=== PATIENT | female | born 1955 | race Caucasian/White ===

== ENCOUNTER → 2017-10-31 14:35 | Outpatient (CLI) | payer BC, SELFPAY ==
[2017-11-07 09:44] LABS: HPV Reflexed? NOT INDICATED
== END ==
PROVIDERS: Family Provider Family Medicine; PCP Family Medicine; Visit Provider Obstetrics & Gynecology
DX: Z12.4 Encounter for screening for malignant neoplasm of cervix (principal)
CPT/HCPCS: 88175; G0145

== ENCOUNTER → 2017-12-12 14:43 | Outpatient (CLI) | payer BC, SELFPAY ==
--- NOTE | 2017-12-12 15:04 | US_ITS ---
STUDY: RENAL ULTRASOUND - COMPLETE REASON FOR EXAM: Female, 62 years old. History of chronic cystitis. Incomplete emptying of the bladder. TECHNIQUE: Ultrasound evaluation of the kidneys was performed with real-time and static edwards-scale imaging. COMPARISON: None. FINDINGS: RIGHT KIDNEY: Normal location of the right kidney, which is normal in size. The right kidney measures 12.6 cm x 5.3 cm x 5.4 cm. There is a normal cortex of the right kidney. The renal cortex measures 1.4 cm. There is a 1.4 cm x 1.3 cm x 1.4 cm cyst. There are no right renal calculi. There is no right hydronephrosis. DISTAL RIGHT URETER: There is non-visualization of the distal right ureter. There is no demonstrated right ureterovesical junction calculus. There is no demonstrated right ureteral jet. LEFT KIDNEY: Normal location of the left kidney, which is normal in size. The left kidney measures 11.1 cm x 5.1 cm x 5.3 cm. There is a normal cortex of the left kidney. The renal cortex measures 1.8 cm. There is no left renal mass or cyst. There are no left renal calculi. There is no left hydronephrosis. DISTAL LEFT URETER: There is non-visualization of the distal left ureter. There is no demonstrated left ureterovesical junction calculus. There is no demonstrated left ureteral jet. I.V.C.: The IVC is patent. BLADDER: The distended urinary bladder has a volume of 444 ml. The empty urinary bladder has a volume of 84 ml. There is a normal wall thickness of the distended urinary bladder. There is no demonstrated mass within the urinary bladder. There are no demonstrated bladder calculi. US/Kidney and Bladder IMPRESSION: Small right renal cyst. Electronically Signed: Braden Marrero MD at 15:11 EDT Tel [phone], Service support ,
== END ==
PROVIDERS: Family Provider Family Medicine; PCP Family Medicine; Visit Provider Nurse Practitioner Adult Health
DX: N30.20 Other chronic cystitis without hematuria (principal)
CPT/HCPCS: 76770

== ENCOUNTER → 2018-09-17 10:09 | Outpatient (CLI) | payer BC, SELFPAY ==
--- NOTE | 2018-09-17 10:12 | BI_ITS ---
MAMMOGRAPHY - BILATERAL SCREENING REASON FOR EXAM: Female, 63 years old. Routine annual screening examination. PERTINENT HISTORY: Non-contributory. Chronic bilateral nipple inversion. TECHNIQUE: Digital bilateral breast bello (3D mammographic acquisition) in the CC and MLO projections. 2-D mediolateral oblique (MLO) and craniocaudad (CC) views of both breasts were obtained. CAD: Full Field Digital Mammography with Computer Added Detection was performed. COMPARISON: Comparison is made with prior study dated July 04, 2017 and June 28, 2016. FINDINGS: Breast Composition: There are scattered areas of fibroglandular density. There are no dominant masses or suspicious calcifications. Stable small bilateral axillary lymph nodes. No other significant abnormalities are identified. There has been no significant change since the prior study. BI/SCREENING MAMM (CAD), BILAT IMPRESSION: Stable bilateral screening mammogram. Yearly follow-up mammogram recommended. (A) ASSESSMENT CATEGORY: BIRADS Category 2: Benign. A letter regarding these results will be sent to the patient by the facility within 30 days. Approximately 10% of breast cancers are not detected by mammography. A normal mammogram should not delay biopsy of a clinically suspicious abnormality. [id number] Electronically Signed: Braden Marrero MD at 13:03 EST Tel [phone], Service support ,
== END ==
PROVIDERS: Family Provider Family Medicine; PCP Family Medicine; Visit Provider Obstetrics & Gynecology
DX: Z12.31 Encounter for screening mammogram for malignant neoplasm of breast (principal)
CPT/HCPCS: 77063; 77067

== ENCOUNTER → 2019-01-22 11:30 | Outpatient (CLI) | payer BC, SELFPAY ==
[2019-01-28 12:22] LABS: HPV Reflexed? NOT INDICATED
== END ==
PROVIDERS: Family Provider Family Medicine; PCP Family Medicine; Referring Provider Obstetrics & Gynecology; Visit Provider Obstetrics & Gynecology
DX: Z12.4 Encounter for screening for malignant neoplasm of cervix (principal)
CPT/HCPCS: 88175; G0145

== ENCOUNTER → 2020-01-26 10:57 | Outpatient (CLI) | payer MEDICARE, BC, SELFPAY ==
--- NOTE | 2020-01-26 10:59 | BI_ITS ---
MAMMOGRAPHY - BILATERAL SCREENING REASON FOR EXAM: Female, 64 years old. Routine annual screening examination. PERTINENT HISTORY: Non-contributory. History of chronic bilateral nipple inversion. TECHNIQUE: Digital bilateral breast miryam (3D mammographic acquisition) in the CC and MLO projections. 2-D mediolateral oblique (MLO) and craniocaudad (CC) views of both breasts were obtained. CAD: Full Field Digital Mammography with Computer Added Detection was performed. COMPARISON: Comparison is made with prior examination dated March 17, 2019 and July 04, 2017. FINDINGS: Breast Composition: There are scattered areas of fibroglandular density. There are no dominant masses or suspicious calcifications. Stable small benign appearing bilateral axillary lymph nodes. No other significant abnormalities are identified. There has been no significant change since the prior study. BI/SCREEN MAMM (CAD) W/MIRYAM BILAT IMPRESSION: Stable bilateral screening mammogram. Yearly follow-up mammogram recommended. (A) ASSESSMENT CATEGORY: BIRADS Category 2: Benign. A letter regarding these results will be sent to the patient by the facility within 30 days. Approximately 10% of breast cancers are not detected by mammography. A normal mammogram should not delay biopsy of a clinically suspicious abnormality. [id number] Electronically Signed: Braden Marrero, at 9:09 EDT , Service support ,
== END ==
PROVIDERS: PCP Family Medicine; Referring Provider Obstetrics & Gynecology; Visit Provider Obstetrics & Gynecology
DX: Z12.31 Encounter for screening mammogram for malignant neoplasm of breast (principal)
CPT/HCPCS: 77063; 77067

== ENCOUNTER → 2020-06-06 15:16 | Outpatient (CLI) | payer MEDICARE, BC, SELFPAY | PROVIDERS: PCP Family Medicine; Referring Provider Nurse Practitioner Adult Health; Visit Provider Nurse Practitioner Adult Health | DX: N30.20 Other chronic cystitis without hematuria (principal) | CPT/HCPCS: 87086 ==

== ENCOUNTER 2020-10-13 11:30 | Outpatient (RCR) | payer MEDICARE, BC, SELFPAY ==
--- NOTE | 2020-07-08 08:32 | HP.OTEVAL_ITS ---
Patient's Visit Information BETSY CASTANO is a 65 year old F, referred to Occupational Therapy by Dr. Hussain Mcneil MD, with a diagnosis of right laceration of finger tendon. Date of Evaluation: 07/04/20 Occupational Therapist: Caro Lynch, OTR/Karlee, CHT - Subjective This 65 year old female was seen for OT eval with dx of right hand. pt states she 2019 suffered a laceration. Pt states she went to ER but could not bend the tip of her finger- pts states she went to her family and pt was refered to [facility]. and the refered pt to [facility]. pt has delay sx repair of flexor tendon on . Dr. tracy . pt is right handed. - Pain right hand 2 Pain Intensity Range: 3, 4 - ROM MP: right IF 0/40 PIP: right IF -5/35 DIP: right IF 0/10 ROM Comments: pt demo with newly healing incision. pt reluctant to move IF- all other digits moving well - Strength Strength Comments: will test at later date - Sensation Sensation Comments: denies at this time - Quick DASH-Disab of Arm,Shoulder& Hand Quick DASH Score: 59.0900 - Goals Goal:100% adherence to protocol: Yes Comment: Dr. Mcneil flexor tendon zone 1-3 Goal:Daily scar massage when approriate: Yes Goal:ROM equal to unaffected hand: Yes Goal:Clinical Geneticist/Pinch strength at least 75% of unaffected hand: Yes Goal:No pain with affected hand use: Yes Goal:PIP Circumferences equal to unaffected hand: Yes Goal:Full use of affected hand in daily activities including: Yes Goal:Decrease scar hypersensitivity: Yes - Rehabilitation General Assessment: this pt arrives s/p 3 days from flexor tendon repair. pt demo with new healing zone one flexor tendon laceration with repair and in need of custom othosis to allow for protection and support while tendon is healing. Today therapist was able to deon. custom orthosis. Therapist ed. pt on Dr. Mcneil flexor tendons zone 1-3 protocol. pt demo understanding- During dressing change pt did get ligh headed- therapist did have pt lay down on mat table and deon. orthosis with pt in this position- pt recoverd and felt it was more due to pain medication- therapist will progress pt with protocol as she tolerates. Rehabilitation Potential: Good - Anticipated Interventions A/AAROM/PROM, Edema Control, Scar Care, Triggerpoint Release, Wound Care, Modalities, Orthoses, Joint Protection/Energy Conservation, Ergonomic Education, Fine Motor Coord/Jaiosn - Visit Plan Frequency: 1-2x /Week Duration: 6 Weeks General Plan: 4-5 dyas post-surgery- Deon. dorsal blocking orthosis apply light dressing to involved digitis. wrist 0* , MP's 45* flexion, IPs at 0* (do not force DIP extension due to possible tendon repair). Initiate full PROM for flexion in orthosis of digits a isolated passive DIP flexion, isolater passive PIP flexion, Isolated passive MP flexion and composite passive flexion perform 6x a day. Initiate short arch AROM flexion of digits within orthosis (MP 45*, PIP 45*, DIP 45*) have patient place uninvolved hand (fingers small,ring,long,index) perpendicular to involved hand at the distal palmar crease index up, small finger at DPC to act as bloc, have pt actively flex the involved hand to the index,thaen straighten to the orthosis perform 10 repetitions 6x a day. Instruct pt to remove orthosis allow pt to actively extend fingers as able to comfort with the wrist in neutral. perform 10 repetitions 6x a day, DO NOT ALLOW WRIST EXTENSION. ed- pt on rancho reduction lacy. Flexor tendon precautions. orthosis is worn multiple resaw operator except controlled exercises. maintaining ROM of the non-involved elbow/shoulder. How to perform self-care activities one handed wihle protection tendon repair. 2nd post op visit- cont the above exercises-. initiate protected synergistic wrist motion SWM (Tenodesis)- active wrist flexion with fingers relaxed, active wrist extension to only 20* extension, with fingers blocked from going into extension (protected flexion) DO NOT ALLOW ACTIVE WRIST AND FINGER EXTENSION. DO NOT ALLOW PROM WRIST. perform in clinic only 10 reps. 3rd post op. cont all above ex. see protocol if extensor lag develops. 2 weeks post-op. cont PROM for flexion. cont protected passive IP extension. cont isolated FDS glide in orthosis. continue protected SWM in clinic only. increase short arc active motion in orthosis (no thre fingers and have pt flex to indes and extend to the orthosis- perform 10 reps 6x a day. cont. to have pt remove orthosis allow pt to actively extend fingers as able to comfort with the wrist in Neutral (*do not allow wrist ext*). cont edmea mtg. cont ROM of elbow shoulder. cont orthosis full-time. 3rd week post op. cont PROM. cont protected passive IP ext. cont isolated FDS glide in orthosis. cont protected SWM. INcrease Short arc active motion in orhtosis two fingers. cont out of orthosis and extend fingers as able to comfort with wrist in neutral. 4th week post-op. cont PROM. cont protected passive IP ext. cont isolated FDS glide in orthosis. cont protected SWM. INcrease Short arc active motion in orhtosis 1 fingers. cont out of orthosis and extend fingers as able to comfort with wrist in neutral. see protocol on file for more details on protocol. TEXT: Thank you for the opportunity to evaluate your patient. For Medicare and Medicare HMO plans, please review the plan of care and approve it. It will need to be FAXED BACK to us at [phone] for Medicare purposes. Please let me know if there are questions or concerns regarding this plan of care. Physician Signature: Date:
--- NOTE | 2020-08-01 13:02 | OTREVAL_ITS ---
Dr. Hussain Mcneil MD, It has been my pleasure to treat BETSY CASTANO over the last 9 visits for right laceration of finger tendon. Please see the progress note below for an update on the occupational therapy plan of care! Subjective: pt arrives 4 weeks and 3 days s/p from FDP repair-. pt struggling with edema- reports she is keeping hand elevated and performing ex as instructed 6x a day. scar mtg and using elastomer at night- pt feels scar is not as thick when she takes the elastomer off-. pt feels she has noticed better motion of the tip of her finger from privous visit. But not the way it was a week ago- Objective/Function: right proximal phal- 7. proximal phal 6.2. right distal 5.9. left distal 4.9. right IF DIP 0/10. right IF PIP -5/80. right IF MCP 0/80. following US and exercises pt demo a increase in DIP flex to 15* - therapist continues to ed. pt on making sure she is straightening her finger al the way as to not get extensor lag or contracture from scar tissue pt demo understanding- therapist continues to advise pt use contrast bath- and elevation to decrease swelling- ( pt was using co-band and k-tape but therapist quesiton if pt was able to get appropriate graded pressure-. therapist ed,pt to cont to work scar tissue as she can tolerate do decrease scar adhesions. pt agree and de mo understanding. pt using elastomer at night and therapist advised throughout the day if she was in her orthosis- advised pt it was better to move figer than stay in orthosis with elastomer on. pt demo understanding. Plan Frequency: 1-2x /Week Duration: 6 Weeks Plan: therapy will cont with US. and protocol exercises unless otherwise specified by . pt will see Saturday Goals - Goals Patient Goals: Regain Mobility, Regain Strength, Use Hand/Wrist/Arm Normally Again Goal:100% adherence to protocol: Yes Goal:Daily scar massage when approriate: Yes Goal:ROM equal to unaffected hand: Yes Goal:Business Systems Technician/Pinch strength at least 75% of unaffected hand: Yes Goal:No pain with affected hand use: Yes Goal:PIP Circumferences equal to unaffected hand: Yes Goal:Full use of affected hand in daily activities including: Yes Goal:Decrease scar hypersensitivity: Yes Anticipated Interventions Anticipated Interventions: A/AAROM/PROM, Edema Control, Scar Care, Triggerpoint Release, Wound Care, Modalities, Orthoses, Joint Protection/Energy Conservation, Ergonomic Education, Fine Motor Coord/Jaison Please do not hesitate to contact me at [phone] by phone or if you have questions or concerns regarding this new plan of care! Sincerely, Caro Lynch, OTR/L, CHT
--- NOTE | 2020-09-12 16:59 | OTREVAL_ITS ---
Dr. Hussain Mcneil MD, It has been my pleasure to treat BETSY CASTANO over the last 20 visits for right laceration of finger tendon. Please see the progress note below for an update on the occupational therapy plan of care! Subjective: pt arrives to session 11 weeks s/p with limited DIP flex for functional ADLs as opening bottles or grooming tasks. pt has concerns as the tip of her IF is not moving ind. at this time. Objective/Function: pt has returned to using her right hand with ADLs and IADLs -. pt demo with limited actvie DIP flex at arrival to tx. session. pt demo active flex with blocking only at this time with 25* flex. pt demo with scar tissue limiting FDP motion therapy is using resisitve ROM , US, blocking orthosis and t-putty. pt is performing scar massage 6 x a day pt continues to struggle with active ROM - therapist ed. pt that scar tissue can limit tendon gliding. therapist ed. pt to cont with scar manuipulation and use of blocking to increase FDP motion. Plan Plan: pt to return to for apt. will work with what dr. green'd for cont. of tx or HEP and monitor pts progress. Goals - Goals Patient Goals: Regain Mobility, Regain Strength, Use Hand/Wrist/Arm Normally Again Goal:100% adherence to protocol: Yes Goal:Daily scar massage when approriate: Yes Goal:ROM equal to unaffected hand: Yes Goal:Patient Advocate/Pinch strength at least 75% of unaffected hand: Yes Goal:No pain with affected hand use: Yes Goal:PIP Circumferences equal to unaffected hand: Yes Goal:Full use of affected hand in daily activities including: Yes Goal:Decrease scar hypersensitivity: Yes Anticipated Interventions Anticipated Interventions: A/AAROM/PROM, Edema Control, Scar Care, Triggerpoint Release, Wound Care, Modalities, Orthoses, Joint Protection/Energy Conservation, Ergonomic Education, Fine Motor Coord/Jaison Please do not hesitate to contact me at [phone] by phone or if you have questions or concerns regarding this new plan of care! Sincerely, Caro Lynch, OTR/L, CHT
--- NOTE | 2020-10-13 12:02 | OTREVAL_ITS ---
Dr. Hussain Mcneil MD, It has been my pleasure to treat BETSY CASTANO over the last 27 visits for right laceration of finger tendon. Please see the progress note below for an update on the occupational therapy plan of care! Subjective: pt is arrives [address] graves. pt reports no change since prior to her DR. graves- pt states she knows dr wanted her to cont. with therapy for 6-8 weeks but I haven't noticed a change still cant bend the tip of my finger. pt is performing her HEP. Objective/Function: Right diesel maintenance electrician strength 30# left 65#. right lateral pinch 12# left 12#. right tripod pinch 4# left 8#. right tip pinch 2# left 10#. right IF PIP 0/100*. right IF DID +5/10*. pt is working with metal scar tool and hand helper-has blocking orthosis for HEP and use of t-putty med. resistance -. despite pts and therapist efforts pt has not gaind ROM- Plan Frequency: 1-2x /Week Duration: 6 Weeks Plan: Pt to return to for further assessment. Goals - Goals Patient Goals: Regain Mobility, Regain Strength, Use Hand/Wrist/Arm Normally Again Goal:100% adherence to protocol: Yes Goal:Daily scar massage when approriate: Yes Goal:ROM equal to unaffected hand: Yes Goal:Event Sales Manager/Pinch strength at least 75% of unaffected hand: Yes Goal:No pain with affected hand use: Yes Goal:PIP Circumferences equal to unaffected hand: Yes Goal:Full use of affected hand in daily activities including: Yes Goal:Decrease scar hypersensitivity: Yes Anticipated Interventions Anticipated Interventions: A/AAROM/PROM, Edema Control, Scar Care, Triggerpoint Release, Wound Care, Modalities, Orthoses, Joint Protection/Energy Conservation, Ergonomic Education, Fine Motor Coord/Jaison Please do not hesitate to contact me at [phone] by phone or if you have questions or concerns regarding this new plan of care! Sincerely, Caro Lynch, OTR/L, CHT
--- NOTE | 2020-12-19 10:23 | HP.OTDCSUM ---
It has been my pleasure to treat BETSY CASTANO under orders from Dr. Hussain Mcneil MD, for the diagnosis of right laceration of finger tendon for a total of 27 visit(s). Please see the following information for a summary of their discharge status. % Improvement: 50 Objective/Function: Right environmental engineer scientist strength 30# left 65#. right lateral pinch 12# left 12#. right tripod pinch 4# left 8#. right tip pinch 2# left 10#. right IF PIP 0/100*. right IF DID +5/10*. pt is working with metal scar tool and hand helper-has blocking orthosis for HEP and use of t-putty med. resistance -. despite pts and therapist efforts pt has not gaind ROM- Patient Goals: Regain Mobility, Regain Strength, Use Hand/Wrist/Arm Normally Again Goal:100% adherence to protocol: Yes Goal:Daily scar massage when approriate: Yes Goal:ROM equal to unaffected hand: Yes Goal:Practicing Urologist/Pinch strength at least 75% of unaffected hand: Yes Goal:No pain with affected hand use: Yes Goal:PIP Circumferences equal to unaffected hand: Yes Goal:Full use of affected hand in daily activities including: Yes Goal:Decrease scar hypersensitivity: Yes Plan: Pt to return to for further assessment. If there are questions or concerns regarding this patient's occupational therapy, please fell free to call me at [phone]. Thank you for the referral of this patient. Sincerely, Caro Lynch, OTR/L, CHT
== END 2020-10-13 19:00 | disposition home or self-care (01) ==
LOC: OT 11:30
PROVIDERS: PCP Family Medicine; Referring Provider Orthopaedic Surgery Hand Surgery; Visit Provider Orthopaedic Surgery Hand Surgery
DX: S61.219D Laceration without foreign body of unspecified finger without damage to nail, subsequent encounter (principal)
CPT/HCPCS: 97035; 97110; 97140; 97166; 97530; 97760

== ENCOUNTER → 2021-01-27 09:53 | Outpatient (CLI) | payer MEDICARE, BC, SELFPAY ==
--- NOTE | 2021-01-27 09:56 | BI_ITS ---
MAMMOGRAPHY - BILATERAL SCREENING 3-D TOMOSYNTHESIS REASON FOR EXAM: Female, 65 years old. Routine screening PERTINENT HISTORY: No significant family history. TECHNIQUE: 2-D mammograms and 3-D Tomosynthesis of the breast (s) were performed. CAD was performed. COMPARISON: 01/26/2020 FINDINGS: The breast composition is composed of scattered fibroglandular density. Scattered benign calcifications are seen. No dense spiculated masses or suspicious microcalcifications are identified. No architectural distortion is identified. There is no skin thickening or retraction. There has been no significant change since the prior study. BI/SCRN MAMM (CAD)W/MIRYAM BILAT IMPRESSION: No mammographic signs of malignancy. Routine yearly mammograms recommended. ASSESSMENT CATEGORY: BIRADS Category 1: Negative. A letter regarding these results will be sent to the patient by the facility within 30 days. FOLLOW UP RECOMMENDATION: Yearly follow up mammogram recommended. (A) Approximately 10% of breast cancers are not detected by mammography. A normal mammogram should not delay biopsy of a clinically suspicious abnormality. Electronically Signed: Richi James MD at 10:48 EDT , Service support ,
== END ==
PROVIDERS: PCP Family Medicine; Referring Provider Obstetrics & Gynecology; Visit Provider Obstetrics & Gynecology
DX: Z12.31 Encounter for screening mammogram for malignant neoplasm of breast (principal)
CPT/HCPCS: 77063; 77067

== ENCOUNTER 2021-09-28 08:32 | Outpatient (CLI) | payer MEDICARE, BC, SELFPAY ==
--- NOTE | 2021-09-28 08:40 | EKG12_ITS ---
Test Reason : PRE OP Blood Pressure : / mmHG Vent. Rate : 066 BPM Atrial Rate : 066 BPM P-R Int : 156 ms QRS Dur : 080 ms QT Int : 382 ms P-R-T Axes : 012 052 054 degrees QTc Int : 400 ms Normal sinus rhythm Normal ECG Confirmed by ROBIN FISH, MAYRA ([id number]), scientific editor MEL SHARMA ([id number]) on 09/29/2021 9:09:54 AM Referred By: Basil Mccrary Confirmed By:MAYRA KELLY MD
[2021-09-28 09:15] LABS: Hematocrit 41.4 % (37-47); Hemoglobin 13.4 g/dL (12.0-15.0); Mean Corp Hgb Conc 32.4 g/dL (32-36); Mean Corpuscular Hgb 31.7 pg (27.0-32.0); Mean Corpuscular Volume 97.9 fL (81-99); Mean Platelet Vol. 10.1 fl (6.2-12.0); Platelet Count 232 K/mm3 (150-450); RBC Distribution Width SD 46.5 fl (35.1-43.9); Red Blood Count 4.23 M/mm3 (4.2-5.4); White Blood Count 7.3 K/mm3 (4.4-11.0)
[2021-09-28 09:44] LABS: Anion Gap 2 (5-15); BUN 14 mg/dL (7-18); BUN/Creat Ratio 15.3 RATIO (10-20); Calcium,Total 9.3 mg/dL (8.5-10.1); Chloride 104 mmol/L (98-107); Creatinine, Serum 0.92 mg/dL (0.55-1.02); EST Glomerular Filtration Rate 65 mL/min (>60); Est Glom Filt Rate - Afr Amer 78 mL/min (>60); Glucose 90 mg/dL (74-106); Sodium Level 137 mmol/L (136-145)
== END 2021-09-28 23:59 | disposition short-term general hospital (02) ==
LOC: PSN 08:35
PROVIDERS: PCP Family Medicine; Referring Provider Physician Assistant; Visit Provider Physician Assistant
DX: Z01.818 Encounter for other preprocedural examination (principal); Z01.810 Encounter for preprocedural cardiovascular examination
CPT/HCPCS: 36415; 80048; 85027; 93005

== ENCOUNTER → 2022-03-08 | Outpatient (CLI) | payer MEDICARE, BC, SELFPAY ==
--- NOTE | 2022-03-08 08:42 | BI_ITS ---
MAMMOGRAPHY - BILATERAL SCREENING REASON FOR EXAM: Female, 66 years old. Routine annual screening examination. PERTINENT HISTORY: Non-contributory. TECHNIQUE: Digital bilateral breast miryam (3D mammographic acquisition) in the CC and MLO projections. 2-D mediolateral oblique (MLO) and craniocaudad (CC) views of both breasts were obtained. CAD: Full Field Digital Mammography with Computer Added Detection was performed. COMPARISON: Comparison is made with prior study of 01/27/2021 and 01/26/2020. FINDINGS: Breast Composition: There are scattered areas of fibroglandular density. There are no dominant masses or suspicious calcifications. Stable small benign-appearing bilateral axillary lymph nodes. No other significant abnormalities are identified. There has been no significant change since the prior study. BI/SCRN MAMM (CAD)W/MIRYAM BILAT IMPRESSION: Stable bilateral screening mammogram. Yearly follow-up mammogram recommended. (A) ASSESSMENT CATEGORY: BIRADS Category 2: Benign. A letter regarding these results will be sent to the patient by the facility within 30 days. Approximately 10% of breast cancers are not detected by mammography. A normal mammogram should not delay biopsy of a clinically suspicious abnormality. [id number] Electronically Signed: Braden Marrero MD at 9:53 EDT ,
== END | disposition home or self-care (01) ==
LOC: OPBI 08:41
PROVIDERS: PCP Family Medicine; Visit Provider Obstetrics & Gynecology
DX: Z12.31 Encounter for screening mammogram for malignant neoplasm of breast (principal)
CPT/HCPCS: 77063; 77067

== ENCOUNTER → 2022-09-13 | Outpatient (CLI) | payer MEDICARE, BC, SELFPAY | END | disposition home or self-care (01) | LOC: LABSPEC 16:47 | PROVIDERS: PCP Family Medicine; Visit Provider Urology | DX: R35.0 Frequency of micturition (principal) | CPT/HCPCS: 87086 ==

== ENCOUNTER 2022-12-03 10:59 | Emergency (ER) | payer MEDICARE, BC, SELFPAY ==
[2022-12-03 10:59] VITALS: BP 99/75; PULSE 90; RESP 14; TEMP 36.2; O2SAT 99; BMI 27.4
--- NOTE | 2022-12-03 12:27 | EDS_ITS ---
HPI History of Present Illness Chief Complaint: General Illness Informant: patient Onset/Context/Timing Onset: Weeks (1 week) Context: Gradual Onset Narrative Narrative: Patient presents with 1 week history of cough and congestion. She has a slight sore throat. No measured fever. No vomiting or diarrhea. [facility] Medical History High cholesterol Home Medications aspirin 81 mg tablet,delayed release (Adult Low Dose Aspirin) 81 mg PO DAILY 02/10/16 [History Last Taken Unknown] cholecalciferol (vitamin D3) 25 mcg (1,000 unit) tablet (Vitamin D3) 1,000 unit PO DAILY 02/10/16 [History Last Taken Unknown] docusate sodium 50 mg capsule (Stool Softener) 50 mg PO DAILY 02/10/16 [History Last Taken Unknown] simvastatin 40 mg tablet 40 mg PO QHS 02/10/16 [History Last Taken Unknown] solifenacin 10 mg tablet (Vesicare) 10 mg PO DAILY 02/10/16 [History Last Taken Unknown] tacrolimus 0.03 % topical ointment (Protopic) 0 g topical DAILY PRN PRN skin irritation 02/10/16 [History Last Taken Unknown] ciprofloxacin HCl 500 mg tablet 500 mg PO BID ##10 02/17/16 [Rx Last Taken Unknown] hydrocodone 5 mg-acetaminophen 300 mg tablet (Vicodin) 1 tab PO Q6H PRN PRN Pain #14 tabs 02/17/16 [Rx Last Taken Unknown] benzonatate 100 mg capsule 100 mg PO Q6H PRN cough #20 caps 12/03/22 [Rx Last Taken Unknown] Allergy/AdvReac Type Severity Reaction Status Date / Time dexamethasone [From TobraDex] Allergy Hives Verified 12/03/22 11:01 tobramycin [From TobraDex] Allergy Hives Verified 12/03/22 11:01 Sulfa (Sulfonamide AdvReac sweats and Verified 02/10/16 08:20 Antibiotics) felt like had the flu Social History Smoking Status: Never smoker ROS ROS ED Constitutional Constitutional ED: Denies chills or fever(s) Eyes Eyes: Denies change in vision or discharge from eye(s) ENT ENT ED: Reports sore throat; Denies discharge from eye(s) or rhinorrhea Cardiovascular Cardiovascular: Denies chest pain or palpitations Respiratory/Chest Respiratory/Chest: Reports cough; Denies dyspnea Gastrointestinal Gastrointestinal: Denies abdominal pain, diarrhea, nausea or vomiting Genitourinary Genitourinary ED: Denies difficulty urinating or dysuria Musculoskeletal Musculoskeletal: Reports myalgias; Denies back pain or extremity pain Integumentary Denies Abrasions or rash Neurologic Neurologic: Reports headache(s) and weakness Psychiatric Psychiatric: Denies anxiety or depression Allergic/Immunologic Allergic/Immunologic ED: Denies lip swelling or urticaria EXAM Physical Exam Const Vital Signs: 12/03/22 10:59 12/03/22 12:55 Temperature 97.2 F L Temperature Source Temporal Pulse Rate 90 Respiratory Rate 14 Respiratory Effort Normal Non-Labored Respiratory Depth Normal Respiratory Pattern Normal Blood Pressure 99/75 Blood Pressure Mean 83 Pulse Ox 99 Oxygen Delivery Method Room Air Positive well nourished and well developed General Appearance ED: well developed HEENT Reports normocephalic and head/scalp atraumatic Eyes PERRL and EOMs intact bilaterally Neck supple Chest Wall inspection of chest normal and palpation of chest normal Resp normal respiratory effort and clear to auscultation bilaterally Cardio regular rate and regular rhythm GI normal to inspection, nondistended, normoactive bowel sounds Palpation: soft Extremity normal to inspection Neuro oriented x3 and no sensory deficits noted Sensorium / Orientation: alert Motor Exam: strength 5/5 throughout Psych mental status grossly normal Skin no rashes or lesions noted MDM MDM MDM Narrative Medical decision making narrative: Patient given IV fluids and 15 mg of Toradol. Labwork obtained to evaluate for leukocytosis, anemia, and electrolyte derangement. Chest x-ray obtained to evaluate for acute lung pathology, cardiac size, or mediastinal abnormality. Viral respiratory panel sent. Lab Data Attestation: I reviewed the patient's lab results. Labs: Laboratory Results - last 24 hr 12/03/22 12/03/22 12:45 12:45 WBC 6.7 RBC 4.16 L Hgb 13.3 Hct 40.8 MCV 98.1 MCH 32.0 MCHC 32.6 RDW Std Deviation 44.8 H RDW Coeff of Quyen 12.3 Plt Count 203 MPV 10.1 Immature Gran % (Auto) 0.300 Neut % (Auto) 68.3 Lymph % (Auto) 19.6 [place] % (Auto) 8.7 Eos % (Auto) 2.7 Baso % (Auto) 0.4 Absolute Neuts (auto) 4.6 Absolute Lymphs (auto) 1.31 Nucleated RBC % 0 Sodium 137 Potassium 3.7 Chloride 105 Carbon Dioxide 30.0 Anion Gap 2 L BUN 17 Creatinine 0.91 Estim Creat Clear Calc 51.09 Est GFR (MDRD) Af Amer 79 Est GFR (MDRD) Non-Af 65 BUN/Creatinine Ratio 18.7 Glucose 91 Calcium 9.3 Radiography Chest X-Ray - ED: 2 View, Read by ED Physician, Normal, Heart, Lungs and Mediastinum Diagnostic Testing: Clinical Impression(s) from Imaging Studies Chest X-Ray 12/03/22 12:53 IMPRESSION: Mild degree of increased markings at the left lung base suggestive of atelectasis. Electronically Signed: Braden Marrero MD at 13:03 EDT , Treatment and Re-Evaluation :: 2 view chest x-ray per my interpretation reveals no evidence of infiltrate. Radiology interpretation is reviewed and agrees. CBC and chemistry studies are unremarkable. Viral panel is pending at this time. If this is positive for an ything she will be called with an update. I advised her that I believe her illness is all viral in nature and simply needs supportive care. I will write her for Jessi Alejandre. Discharge Plan Triage Chief Complaint: General Illness ED Provider: Katelyn Dailey Dx/Rx/DC Orders Clinical Impression: Viral syndrome Instructions: ED Viral Syndrome (Adult) Prescriptions: New benzonatate 100 mg capsule 100 mg PO Q6H PRN (Reason: cough) Qty: 20 0RF No Action docusate sodium [Stool Softener] 50 MG capsule 50 mg PO DAILY simvastatin 40 MG tablet 40 mg PO QHS solifenacin [Vesicare] 10 MG tablet 10 mg PO DAILY cholecalciferol (vitamin D3) [Vitamin D3] 1,000 UNIT tablet 1,000 unit PO DAILY aspirin [Adult Low Dose Aspirin] 81 MG tablet,delayed release (DR/EC) 81 mg PO DAILY tacrolimus [Protopic] 30 GM ointment 0 g topical DAILY PRN PRN (Reason: skin irritation) ciprofloxacin HCl 500 MG tablet 500 mg PO BID Qty: 10 0RF hydrocodone-acetaminophen [Vicodin] 1 EACH tablet 1 tab PO Q6H PRN PRN (Reason: Pain) Qty: 14 0RF Rx Instructions: Primary Care Provider: Demetrius Escoto Referrals: Demetrius Escoto MD [Primary Care Provider] - 1 Week Disposition Disposition: Home, Self Care
[2022-12-03] MEDS: 0.9% Normal Saline 1,000 ML 1000 ML IV (12:47)
[2022-12-03] MEDS: Ketorolac 15 MG/ML Vial IV (12:47)
[2022-12-03 12:51] LABS: Absolute Lymphocyte Count 1.31 X10^3/uL (0.83-4.51); Absolute Neutrophil Count 4.6 X10^3/uL (2.0-7.7); Basophil# 0.03 X10^3/uL; Basophil% 0.4 % (0-1); Eosinophil# 0.18 X10^3/uL; Eosinophils% 2.7 % (0-5); Hematocrit 40.8 % (37-47); Hemoglobin 13.3 g/dL (12.0-15.0); Lymphocyte # 1.31 X10^3/ul (0.83-4.51); Lymphocyte % 19.6 % (19-41); Mean Corp Hgb Conc 32.6 g/dL (32-36); Mean Corpuscular Volume 98.1 fL (81-99); Mean Platelet Vol. 10.1 fl (6.2-12.0); Monocyte# 0.58 X10^3/uL; Monocyte% 8.7 % (0-10); NRBC Flagged by Analyzer 0 % (0-5); Neutrophil # 4.57 X10^3/uL (2.7-7.7); Neutrophil % 68.3 % (47-70); Platelet Count 203 K/mm3 (150-450); RBC Distribution Width CV 12.3 % (11.6-14.6); RBC Distribution Width SD 44.8 fl (35.1-43.9); Red Blood Count 4.16 M/mm3 (4.2-5.4); White Blood Count 6.7 K/mm3 (4.4-11.0)
--- NOTE | 2022-12-03 12:53 | RAD_ITS ---
STUDY: X-RAY CHEST REASON FOR EXAM: Female, 67 years old. One-week history of cough. TECHNIQUE: PA and lateral views of the chest. COMPARISON: None. FINDINGS: Mild increased linear markings at the left lung base suggestive of linear atelectasis. There is no demonstrated pleural abnormality. Normal size heart. Normal mediastinum and daniella. Normal visualized pulmonary arteries. Normal visualized aortic arch and descending thoracic aorta. There is demineralization of the osseous structures. Normal visualized ribs, clavicles, and shoulders. There is no demonstrated abnormality of the visualized soft tissue structures of the upper abdomen. RAD/Chest PA and Lateral IMPRESSION: Mild degree of increased markings at the left lung base suggestive of atelectasis. Electronically Signed: Braden Marrero MD at 13:03 EDT ,
[2022-12-03 13:05] LABS: Anion Gap 2 (5-15); BUN 17 mg/dL (7-18); BUN/Creat Ratio 18.7 RATIO (10-20); Calcium,Total 9.3 mg/dL (8.5-10.1); Chloride 105 mmol/L (98-107); Creatinine, Serum 0.91 mg/dL (0.55-1.02); EST Glomerular Filtration Rate 65 mL/min (>60); Est Glom Filt Rate - Afr Amer 79 mL/min (>60); Estimated Creatinine Clearance 51.09 ml/min; Glucose 91 mg/dL (74-106); Potassium 3.7 mmol/L (3.5-5.1); Sodium Level 137 mmol/L (136-145)
--- NOTE | 2022-12-04 11:24 | ED.RN ---
nelida rn called pt and informed pt of respiratory panel results as indicated in dr. hi's dictation. pt veirifes pt identifiers, verbalizes understanding of results and reports she will follow up with pcp.
== END 2022-12-03 15:43 | disposition home or self-care (01) ==
PROVIDERS: Emergency Provider Emergency Medicine; PCP Family Medicine; Visit Provider Emergency Medicine
DX: B34.9 Viral infection, unspecified (principal); E78.00 Pure hypercholesterolemia, unspecified
CPT/HCPCS: 71046; 80048; 85025; 87633; 96361; 96374; 99283; J7030; A4216

== ENCOUNTER → 2023-02-28 | Outpatient (CLI) | payer MEDICARE, BC, SELFPAY ==
[2023-03-07 00:07] LABS: HPV APTIMA, High Risk Negative (Negative)
== END | disposition home or self-care (01) ==
LOC: WOBLAB 14:23
PROVIDERS: PCP Family Medicine; Visit Provider Nurse Practitioner Women's Health
DX: Z12.4 Encounter for screening for malignant neoplasm of cervix (principal)
CPT/HCPCS: 36415; 82533; 87624; 88175; G0145

== ENCOUNTER → 2023-03-14 | Outpatient (CLI) | payer MEDICARE, BC, SELFPAY ==
--- NOTE | 2023-03-14 08:43 | BI_ITS ---
MAMMOGRAPHY - BILATERAL DIAGNOSTIC REASON FOR EXAM: Female, 67 years old. 2 month history of right breast lump. History of bilateral nipple inversion. PERTINENT HISTORY: Non-contributory. TECHNIQUE: Digital bilateral breast bello (3D mammographic acquisition) in the CC and MLO projections. 2-D mediolateral oblique (MLO) and craniocaudad (CC) views of both breasts were obtained. CAD: Full Field Digital Mammography with Computer Added Detection was performed. COMPARISON: Comparison is made with prior study dated March 08, 2022 and January 27, 2021. FINDINGS: Breast Composition: There are scattered areas of fibroglandular density. There are no dominant masses or suspicious calcifications. Stable fat-containing bilateral axillary lymph nodes. No other significant abnormalities are identified. There has been no significant change since the prior study. BI/DIAG MAMM W/CAD, BILAT IMPRESSION: Stable bilateral diagnostic mammogram. With the patient''s history of a palpable lump in the right breast, targeted ultrasound correlation is recommended. ASSESSMENT CATEGORY: BIRADS Category 0: Incomplete. Need additional imaging evaluation. A letter regarding these results will be sent to the patient by the facility within 30 days. Approximately 10% of breast cancers are not detected by mammography. A normal mammogram should not delay biopsy of a clinically suspicious abnormality. Electronically Signed: Braden Marrero MD at 9:28 EDT ,
--- NOTE | 2023-03-14 09:16 | US_ITS ---
STUDY: ULTRASOUND BREAST - RIGHT REASON FOR EXAM: Female, 67 years old. Palpable lump in the right breast. TECHNIQUE: Axial and longitudinal images of the RIGHT breast were performed with a high resolution ultrasound transducer. # OF IMAGES: 31 COMPARISON: Comparison is made with prior mammogram done earlier in the day. FINDINGS: RIGHT Breast: The lateral half of the right breast was examined with ultrasound. No sonographic abnormality is seen. US/Breast Limited Unilateral IMPRESSION: No sonographic abnormality is seen. ASSESSMENT CATEGORY: BIRADS Category 1: Negative. A letter regarding these results will be sent to the patient by the facility within 30 days. Electronically Signed: Braden Marrero MD at 9:53 EDT ,
== END | disposition home or self-care (01) ==
LOC: OPBI 08:41
PROVIDERS: PCP Family Medicine; Referring Provider Nurse Practitioner Women's Health; Visit Provider Nurse Practitioner Women's Health
DX: Z12.31 Encounter for screening mammogram for malignant neoplasm of breast (principal)
CPT/HCPCS: 76642; 77062; 77066; G0279

== ENCOUNTER → 2023-03-21 | Outpatient (CLI) | payer MEDICARE, BC, SELFPAY ==
--- NOTE | 2023-03-21 08:47 | BD_ITS ---
STUDY: DUAL ENERGY X-RAY ABSORPTIOMETRY / DXA REASON FOR EXAM: Female, 67 years old. Z78.0 TECHNIQUE: Bone Mineral Density (BMD) measurements of lumbar spine and bilateral hips were obtained. COMPARISON: None. FINDINGS: Lumbar Spine (L1-L4): g/cm2 (0.808) / T-score (-2.2) / Z-score (-0.1) Findings are suggestive of osteopenia with a high fracture risk. Left Femur Total: g/cm2 (0.893) / T-score (-0.4) / Z-score (1.0) Left Femoral Neck: g/cm2 (0.712) / T-score (-1.2) / Z-score (0.5) Right Femur Total: g/cm2 (0.872) / T-score (-0.6) / Z-score (0.9) Right Femoral Neck: g/cm2 (0.7-1) / T-score (-1.2) / Z-score (0.6) BD/Dexa Bone Density Study IMPRESSION: The patient is considered osteopenic as outlined below according to World [employer] Organization (WHO) criteria with a high fracture risk. Reference Information: The T-score is the number of standard deviations above or below the standard which is normal for young adults at their peak bone mineral density. The World Health Organization (WHO) interprets the T-scores as follows: Above -1 Normal bone density Between -1 and -2.5 Osteopenia Equal to / or below -2.5 Osteoporosis As a practical clinical guideline, osteopenia may be graded as follows: Mild -1 through -1.5 Moderate -1.6 through -2.0 Severe -2.1 through -2.4 The Z-score is the number of standard deviations above or below age-matched controls. A Z-score of less than -1.5 would be considered abnormal. References: 1. NIH Osteoporosis and Related Bone Diseases www osteo.org 2. International Society for Clinical Densitometry www iscd.org 3. National Osteoporosis Foundation www nof.org Electronically Signed: Braden Marrero MD at 15:07 EDT ,
== END | disposition home or self-care (01) ==
LOC: OPBD 08:34
PROVIDERS: PCP Family Medicine; Referring Provider Nurse Practitioner Women's Health; Visit Provider Nurse Practitioner Women's Health
DX: Z78.0 Asymptomatic menopausal state (principal)
CPT/HCPCS: 77080

== ENCOUNTER → 2023-09-11 | Outpatient (CLI) | payer MEDICARE, BC, SELFPAY ==
[2023-09-11 13:05] LABS: ALB/GLOB Ratio 1.4 RATIO (0.9-2.4); AST(SGOT) 17 U/L (15-37); Alanine Aminotransfer ALT/SGPT 19 U/L (13-56); Albumin, Serum 4.2 g/dL (3.2-5.0); Alkaline Phosphatase 104 U/L (45-117); Anion Gap 8 (5-15); BUN 19 mg/dL (7-18); BUN/Creat Ratio 17.8 RATIO (10-20); Chloride 106 mmol/L (98-107); Cholesterol 194 mg/dL (200); Creatinine, Serum 1.07 mg/dL (0.55-1.02); EST Glomerular Filtration Rate 54 mL/min (>60); Est Glom Filt Rate - Afr Amer 65 mL/min (>60); Globulin 3.1 g/dL (2.2-4.2); Glucose 91 mg/dL (74-106); High Density Lipoprotein 75 mg/dL; Potassium 4.3 mmol/L (3.5-5.1); Protein, Total 7.3 g/dL (6.4-8.2); Sodium Level 142 mmol/L (136-145); Triglycerides 131 mg/dL; Very Low Density Lipoprotein 26 mg/dL (5-40)
[2023-09-11 14:35] LABS: Vitamin D,25 Hydroxy 55.4 ng/mL
== END | disposition home or self-care (01) ==
PROVIDERS: PCP Family Medicine; Visit Provider Family Medicine
DX: E78.2 Mixed hyperlipidemia (principal); E55.9 Vitamin D deficiency, unspecified
CPT/HCPCS: 36415; 80053; 80061; 82306

== ENCOUNTER → 2023-12-18 | Outpatient (CLI) | payer MEDICARE, BC, SELFPAY ==
--- NOTE | 2023-12-18 15:02 | RAD_ITS ---
STUDY: X-RAY - RIGHT KNEE REASON FOR EXAM: Female, 68 years old. RIght knee pain TECHNIQUE: 4 view(s) of the knee. COMPARISON: None. FINDINGS: Normal visualized distal femur. Normal visualized proximal tibia and fibula. Normal proximal tibiofibular articulation. There is mild degenerative arthrosis of the medial femorotibial compartment. Normal lateral femorotibial compartment. Normal patellofemoral articulation. The soft tissue structures are unremarkable. RAD/Knee 4 or More Views IMPRESSION: Degenerative arthrosis. Electronically Signed: Jerald Ching MD at 20:49 EDT ,
[2023-12-18 18:32] LABS: ALB/GLOB Ratio 1.3 RATIO (0.9-2.4); AST(SGOT) 25 U/L (15-37); Alanine Aminotransfer ALT/SGPT 22 U/L (13-56); Albumin, Serum 4.4 g/dL (3.2-5.0); Alkaline Phosphatase 80 U/L (45-117); Anion Gap 4 (5-15); BUN 21 mg/dL (7-18); BUN/Creat Ratio 18.1 RATIO (10-20); Calcium,Total 9.2 mg/dL (8.5-10.1); Chloride 105 mmol/L (98-107); Creatinine, Serum 1.16 mg/dL (0.55-1.02); EST Glomerular Filtration Rate 49 mL/min (>60); Est Glom Filt Rate - Afr Amer 60 mL/min (>60); Globulin 3.3 g/dL (2.2-4.2); Glucose 95 mg/dL (74-106); Potassium 3.8 mmol/L (3.5-5.1); Protein, Total 7.7 g/dL (6.4-8.2); Sodium Level 138 mmol/L (136-145)
== END | disposition home or self-care (01) ==
PROVIDERS: PCP Family Medicine; Referring Provider Family Medicine; Visit Provider Family Medicine
DX: R79.89 Other specified abnormal findings of blood chemistry (principal); M25.561 Pain in right knee
CPT/HCPCS: 36415; 73564; 80053

== ENCOUNTER → 2024-03-25 | Outpatient (CLI) | payer MEDICARE, BC, SELFPAY ==
--- NOTE | 2024-03-25 08:36 | BI_ITS ---
MAMMOGRAPHY - BILATERAL SCREENING REASON FOR EXAM: Female, 68 years old. Routine annual screening examination. PERTINENT HISTORY: Non-contributory. Chronic bilateral nipple inversion. TECHNIQUE: Digital bilateral breast miryam (3D mammographic acquisition) in the CC and MLO projections. 2-D mediolateral oblique (MLO) and craniocaudad (CC) views of both breasts were obtained. CAD: Full Field Digital Mammography with Computer Added Detection was performed. COMPARISON: Comparison is made with prior study dated March 14, 2023 and March 08, 2022. FINDINGS: Breast Composition: There are scattered areas of fibroglandular density. There are no dominant masses or suspicious calcifications. Stable small fat-containing axillary lymph nodes. No other significant abnormalities are identified. There has been no significant change since the prior study. BI/SCRN MAMM (CAD)W/MIRYAM BILAT IMPRESSION: Stable bilateral screening mammogram. Yearly follow-up mammogram recommended. (A) ASSESSMENT CATEGORY: BIRADS Category 2: Benign. A letter regarding these results will be sent to the patient by the facility within 30 days. Approximately 10% of breast cancers are not detected by mammography. A normal mammogram should not delay biopsy of a clinically suspicious abnormality. [id number] Electronically Signed: Braden Marrero MD at 10:23 EDT ,
== END | disposition home or self-care (01) ==
LOC: OPBI 08:35
PROVIDERS: PCP Family Medicine; Referring Provider Nurse Practitioner Family; Visit Provider Nurse Practitioner Family
DX: Z12.31 Encounter for screening mammogram for malignant neoplasm of breast (principal); N64.59 Other signs and symptoms in breast
CPT/HCPCS: 77063; 77067

== ENCOUNTER 2024-08-19 12:29 | Day surgery (SDC) | payer MEDICARE, BC, SELFPAY ==
--- NOTE | 2024-08-19 12:39 | PRE.ANES_ITS ---
ASA Classification* ASA Classification ASA Classification: 2 Assessment & Plan Anesthesia* Anesthesia Assessment Anesthesia Assessment: Discussed sedation and/or anesthesia options, risks, benefits, and alternatives with patient/parents/legal guardian/POA. Questions invited. The patient/parents/legal guardian/POA seems to understand and agrees to proceed with anesthesia plan. Reviewed the physical assessment, medical history, allergy history and patient home medications list prior to surgery/procedure/anesthetic and documented any changes. Performed airway and anesthesia risk assessments. Anesthesia Type Anesthesia Type: General Anesthesia Focused Assessment* Airway Assessment Mouth opens: >3 cm Mallampati Score: II Focused Labs Anesthesia Preop lab: CBC WBC 6.7 K/mm3 (4.4-11.0) 12/03/22 12:45 RBC 4.16 M/mm3 (4.2-5.4) L 12/03/22 12:45 Hgb 13.3 g/dL (12.0-15.0) 12/03/22 12:45 Hct 40.8 % (37-47) 12/03/22 12:45 Plt Count 203 K/mm3 (150-450) 12/03/22 12:45 CHEMISTRY Potassium 3.8 mmol/L (3.5-5.1) 12/18/23 15:03 Sodium 138 mmol/L (136-145) 12/18/23 15:03 BUN 21 mg/dL (7-18) H 12/18/23 15:03 Creatinine 1.16 mg/dL (0.55-1.02) H 12/18/23 15:03 Glucose 95 mg/dL (74-106) 12/18/23 15:03 COAG Pre-Assessment Diagnosis/Proposed Procedure Planned Operative Procedure(s): INTERSTIM THERAPY 1 AND 2 Anesthesia History 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 When Was Last Pacemaker Check QUESTION #4 FULL TEXT: You/Your Family Experience fever (hyperthermia) with Anesthesia Last Oral Intake Last Oral intake: Last Oral Intake NPO since Meds taken in AM with sips of water? Meds patient instructed to take am of surgery PONV PONV - mail distribution scheme examiner: PONV - mail distribution scheme examiner Female Yes 07/24/24 14:46 HX of Motion Sickness No 07/24/24 14:46 HX of N/V After Surgery No 07/24/24 14:46 Non-Smoker Yes 07/24/24 14:46 Duration of Surgery greater No 07/24/24 14:46 than 60 minutes Number of Risk Factors 2 07/24/24 14:46 PONV Score Moderate Risk 07/24/24 14:46 Height & Weight Height & Weight: Anesthesia: Height & Weight Height 5 ft 4 in 12/03/22 10:59 Respiratory Assessment Respiratory Assessment - mail distribution scheme examiner: Respiratory Tract Infection Hx - mail distribution scheme examiner Hx Respiratory Tract Infection No 07/24/24 14:46 STOP Sleep Apnea STOP Sleep Apnea - mail distribution scheme examiner: STOP Sleep Apnea - mail distribution scheme examiner Hx Hypertension No 07/24/24 14:46 Hx Sleep Apnea No 07/24/24 14:46 CPAP BIPAP Do you snore loudly (louder Yes 07/24/24 14:46 than talking or can be heard Do you often feel tired/ No 07/24/24 14:46 fatigued/ sleepy during daytime? Has anyone observed you stop Yes 07/24/24 14:46 breathing during sleep? STOP Results Positive 07/24/24 14:46 QUESTION #5 FULL TEXT : Do you snore loudly (louder than talking or can be heard through closed doors)? Tobacco Use History Tobacco Use History - mail distribution scheme examiner: Tobacco Use History - mail distribution scheme examiner Tobacco Use Smoking Status Never smoker 07/24/24 14:46 Hx Tobacco Use No 07/24/24 14:46 Years Smoking Packs Smoked per Day Smoking Cessation Date was within the last 15 years Hx Smoking Cessation Date Hx Smoking Cessation Counseling Hematologic Medial History Hematologic Hx - mail distribution scheme examiner: Hematologic Medical Hx - program associate Hx of Blood Transfusion No 07/24/24 14:46 Hx of Transfusion in last 3 No 07/24/24 14:46 Months Date of Last Transfusion (if within last 3 months) Ever experience any problems No 07/24/24 14:46 with transfusion(s)? Specify any problems Hx of Preganancy in last 3 No 07/24/24 14:46 Months Nurse Filling Out Transfusion DSCHRIBER 07/24/24 14:46 & Questions: Date: 07/24/24 07/24/24 14:46 Time: 14:47 07/24/24 14:46 Patient unable to answer at this time (ie. confused, unrespo /Reproduction History /Reproductive History - mail distribution scheme examiner: /Reproductive Hx- mail distribution scheme examiner Hx Now No 07/24/24 14:46 Gestational Age (in weeks): EDC: Hx Hx Para Hx Section SAB No 07/24/24 14:46 Active Medications Active Medications: Current Medications Generic Name Dose Route Start Last Admin Trade Name Freq PRN Reason Stop Dose Admin Cefazolin Sodium 2 gm/ N/A 20 mls @ 400 mls/hr 08/19/24 14:35 IV 08/19/24 14:37 PREOP ONE Sodium Chloride 1,000 mls @ 15 mls/hr 08/19/24 12:35 IV 08/22/24 07:14 .Q48H [facility] Protocol PFSH Medical History Loss of hearing Wears contact lenses Post-menopausal Depression Arthritis Dietary restriction Non-smoker Hyperlipidemia Osteoarthritis Lichen sclerosus High cholesterol Home Medications ?Medication ?Instructions ?Recorded ?Last Taken ?Type cholecalciferol (vitamin D3) 25 1,000 unit PO DAILY 02/10/16 Unknown History mcg (1,000 unit) tablet (Vitamin D3) simvastatin 40 mg tablet 40 mg PO QHS 02/10/16 Unknown History bupropion HCl 300 mg 24 hr tablet, 300 mg PO DAILY 08/16/23 Unknown History extended release methenamine hippurate 1 gram tablet 1 g PO QHS 08/16/23 Unknown History ascorbic acid (vitamin C) 1,000 mg 1 g PO QHS 07/24/24 Unknown History tablet (C-1000) calcium carbonate (Calcium 500) 1,200 mg PO QHS 07/24/24 Unknown History clobetasol 0.05 % topical ointment 1 applic topical DAILY 07/24/24 Unknown History estradiol 0.01% (0.1 mg/gram) 1 appful vaginal SUTH 07/24/24 Unknown History vaginal cream tacrolimus 0.1 % topical ointment 1 applic topical PRN PRN eye 07/24/24 Unknown History irritation Allergy/AdvReac Type Severity Reaction Status Date / Time tobramycin (From TobraDex) Allergy Hives Verified 07/24/24 14:41 tramadol AdvReac Intermediate Other Verified 07/24/24 14:41 Sulfa (Sulfonamide AdvReac sweats and Verified 07/24/24 14:41 Antibiotics) felt like had the flu Family History Other Colon cancer Heart disease Surgical History Hx of colonoscopy History of release of tendon History of bladder surgery History of shoulder surgery Social History Smoking Status: Never smoker Review of Systems (Anesthesia) ROS Narrative System reviewed and no additional complaints, except as documented.
[2024-08-19 12:51] VITALS: BP 113/69; PULSE 69; RESP 69; TEMP 36.5; O2SAT 100; BMI 28.5
[2024-08-19] MEDS: 0.9% Normal Saline (1000mL) 1,000 ML 15 ML IV (13:00)
--- NOTE | 2024-08-19 13:25 | RAD_ITS ---
PROCEDURE: InterStim therapy DATE OF EXAMINATION: August 19, 2024. INDICATION: Female, 69 years old. Frequency. FLUOROSCOPY TIME (if supplied): (9.9 seconds) minutes/seconds. 5.65 mGy. 2 images were submitted. RAD/Pelvis 1 or 2 Views IMPRESSION: Fluoroscopic images provided for insertion of the InterStim electrode. Electrodes are seen along the posterior left lateral aspect of the pelvis. Electronically Signed: Braden Marrero MD at 13:54 EST ,
--- NOTE | 2024-08-19 13:34 | HP.PCM_ITS ---
HPI - General General Date of Service: 08/19/24 Chief Complaint: Overactive bladder and frequency urgency HPI Narrative BETSY CASTANO, is a 69 F who presents for placement of InterStim stage I and II she did well with her InterStim trial plan to do InterStim implant with [employer] [facility] Medical History Loss of hearing Wears contact lenses Post-menopausal Depression Arthritis Dietary restriction Non-smoker Hyperlipidemia Osteoarthritis Lichen sclerosus High cholesterol Home Medications ?Medication ?Instructions ?Recorded ?Last Taken ?Type cholecalciferol (vitamin D3) 25 1,000 unit PO DAILY 02/10/16 Unknown History mcg (1,000 unit) tablet (Vitamin D3) simvastatin 40 mg tablet 40 mg PO QHS 02/10/16 Unknown History bupropion HCl 300 mg 24 hr tablet, 300 mg PO DAILY 08/16/23 Unknown History extended release methenamine hippurate 1 gram tablet 1 g PO QHS 08/16/23 Unknown History ascorbic acid (vitamin C) 1,000 mg 1 g PO QHS 07/24/24 Unknown History tablet (C-1000) calcium carbonate (Calcium 500) 1,200 mg PO QHS 07/24/24 Unknown History clobetasol 0.05 % topical ointment 1 applic topical DAILY 07/24/24 Unknown History estradiol 0.01% (0.1 mg/gram) 1 appful vaginal SUTH 07/24/24 Unknown History vaginal cream tacrolimus 0.1 % topical ointment 1 applic topical PRN PRN eye 07/24/24 Unknown History irritation Allergy/AdvReac Type Severity Reaction Status Date / Time tobramycin (From TobraDex) Allergy Hives Verified 08/19/24 12:50 tramadol AdvReac Intermediate Other Verified 08/19/24 12:50 Sulfa (Sulfonamide AdvReac sweats and Verified 08/19/24 12:50 Antibiotics) felt like had the flu Family History Other Colon cancer Heart disease Surgical History Hx of colonoscopy History of release of tendon History of bladder surgery History of shoulder surgery Social History Smoking Status: Never smoker Vital Signs Vital Signs Vital Signs: 08/19/24 12:51 Temperature 97.7 F L Temperature Source Temporal Pulse Rate 69 Respiratory Rate 69 H Blood Pressure 113/69 Blood Pressure Mean 83 Blood Pressure Source Monitor Blood Pressure Position Semi-Fowlers Blood Pressure Location Right Arm Pulse Ox 100 Oxygen Delivery Method Room Air Weight Weight: 75.296 kg Body Mass Index (BMI) 28.5
[2024-08-19] MEDS: Lidocaine 1% (20 ml mdv) 20 ML Vial (13:49)
[2024-08-19] MEDS: Cefazolin 2 GM in Syringe IV (14:04)
--- NOTE | 2024-08-19 14:52 | DCINST_ITS ---
Discharge Instructions Diet Discharge Diet: No restrictions, Light diet - advance as tolerated and Soft diet DC O2, CPAP, BIPAP needs Additional Home O2 Discharge instructions: No Dressing / Incision Discharge Activity: Return to Normal Activity, May Drive (after 48 hours) and May Shower Return to work on:: 09/09/24 May shower in (days): 1 Additional Activity Instructions:: ok to stand up shower Dressing / Incision Call your doctor if your incision/area has: Continuous Slow Oozing, Sudden Increased Bleeding, Increased Pain/ Swelling, Increased Redness, Foul Smelling Discharge and Swelling at the incision site Call your doctor if you observe: Fever of 101 or Higher and Uncontrolled pain Suture Line Care: Avoid Pulling/Pushing and Avoid Pinching/Bending Cleanse incision/area with: Soap & Water Follow Up Care Please Follow Up With: Tej Mckay MD When: 2 -3 weeks Test Results: Test results from this visit will be discussed in further detail at your follow- up appointment, if applicable. Discharge Plan Admission Primary Reason for Your Visit: InterStim therapy stage I and II Attending Provider: Tej Mckay Primary Care Provider: Shavon Sargent Instructions Print Language: Irish Discharge Orders/Prescriptions Prescriptions: New cephalexin 500 mg capsule 500 mg PO TID Qty: 15 0RF oxycodone 5 mg tablet 5 mg PO Q6H PRN (Reason: pain) 3 Days Qty: 7 0RF No Action bupropion HCl 300 mg tablet extended release 24 hr 300 mg PO DAILY methenamine hippurate 1 gram tablet 1 g PO QHS simvastatin 40 MG tablet 40 mg PO QHS cholecalciferol (vitamin D3) [Vitamin D3] 1,000 UNIT tablet 1,000 unit PO DAILY ascorbic acid (vitamin C) [C-1000] 1,000 mg tablet 1 g PO QHS calcium carbonate [Calcium 500] 500 mg calcium (1,250 mg) tablet,chewable 1,200 mg PO QHS estradiol 0.01 % (0.1 mg/gram) cream 1 appful VAGINAL SUTH Patient Comments: insert ONE gram vaginally twice WEEKLY clobetasol 0.05 % ointment 1 applic TOPICAL DAILY Patient Comments: Apply ONE application TO affected AREA twice daily FOR FOUR WEEKS, THEN AT night FOR FOUR WEEKS, THEN every other DAY FOR FOUR WEEKS, THEN taper TO 1-2 times/week. tacrolimus 0.1 % ointment 1 applic TOPICAL PRN PRN (Reason: eye irritation) Patient Comments: [NO ORIGINAL SIG] Referrals / Follow Up: Shavon Sargent MD [Primary Care Provider] - Disposition Disposition (needs filled in before D/C Order can be placed): Home, Self Care
--- NOTE | 2024-08-19 14:53 | OP.PCM_ITS ---
Operative Report (Standard) Operative Information Date of Procedure: 08/19/24 Pre-Operative Diagnosis: Frequency, urgency and overactive bladder Post-Operative Diagnosis: The same Surgery/Procedure Performed: Stage I and stage II InterStim therapy implant assistant therapy aide: No Type of Anesthesia: MAC and Topical Anesth RN Documented Start/Stop Times: Operation Date: 08/19/24 14:25 Case Time Into Pre-Op 08/19/24 12:34 Out of Pre-Op 08/19/24 14:00 Anesthesia Start 08/19/24 14:04 Into Room 08/19/24 14:04 Procedure Start 08/19/24 14:23 Procedure Start Time: 14:04 Procedure Stop Time: 14:54 Select all DRAINS/GRAFTS/IMPLANTS that apply: None Estimated Blood Loss: 5cc Specimen collected: No Description of surgery: The patient presents to the operating room for placement of stage I and II therapy. In the preoperative setting she is failed medical management for the patient urge incontinence and severe frequency of urination, a voiding diary was reviewed. The patient understands these is no guarantees that in the future the therapy will keep working to the patient's satisfaction and its always possible and it may need to have a surgical revision, change in implant, possible revision or removal of implant. We also talk about the risks of pain with stimulation, bleeding and infection or any injury to nerves or bony structures and the tailbone area. After reviewing all this with the patient in the preoperative area she signed the consent form and we proceeded with stageI and II therapy implant. Patient was brought back to the operating room and placed supine on the table and then transferred to facedown the table and underwent sedation with comfort hugging a pillow. Patient's lower back was prepped and draped in usual sterile fashion, I then palpated the bony landmarks identify the tailbone the sacrum and the pocket area was identified where the software development leader would be implanced and also the lead. Fluoroscopy was brought in to identify the pelvis we identify the spinous processes of the pelvic bone we used a finder needle to lay across the spinous process to the approximate the location of the S3 foramen. I then identified the lateral borders of the foramen using the other spinal needle. Under this the skin was then marked and potential entrances were by approximation and bony landmarks using fluoroscopy. I then infiltrated the skin about 2 cm up above the approximation of the S3 foramen and then used the needle within the stage I InterStim kit to go straight down to the potential S3 foramen spot marching along the sacrum until the needle electrode dropped into what appeared to be the S3 foramen. Under fluoroscopy in AP and lateral veiw I confirmed that I had the lead in the S3 foramen, I then stimulated the needle and had good skip response and had toe flexion but no calf rotation, confirm placement of the lead in the S3 Foremen. I then placed the guide through the needle the stylette was removed and then the needle was removed over the guide an incision was made into the skin and then through the incision incision and over the guide I introduced the sheath I followed the sheath under fluoroscopy until the marker on the sheath was three fourths down from the anterior plate of the sacrum. Once this was in good position then the stylette was removed and through the sheath I then introduced the stage I InterStim stimulator lead, I then checked the lead for stimulation of skip and toe flexion at all 4 sites 0, 1, 2, 3 and had good response with skip and toe flexion and pleased with the placement of the lead. Under fluoroscopy I captured the placement the lead this was documented both in AP and lateral views. I then removed the stylette within the lead and then pulled back in the sheath of the deployed the tines on the lead to secure the lead and the sacrum and the S3 foramen. Another fluoroscopic check was done to make sure no movement of the lead. After this was confirmed then pocket was created in the patient's lateral side where the generator pocket would be placed after the pocket was created in the subcutaneous tissue then using the guide created in the kit the end of the lead was then transferred from the insertion site to the pocket site subcutaneously. Then the generator was opened and I made sure I cleaned the lead completely I attached the lead to the generator use the screwdriver provided in the kit to then secure the bolt secure the lead to the generator prior to doing this again checked the lead 0, 1, 2, 3 and there was still good stimulation at all sites. I then placed the lead into the generator and the generator was put into the pocket that was created. I made sure that the generator was placed with InterStim labeling side up and was oriented appropriately. I then checked for impedance using the rep and had the device checked in the impedance was normal with no abnormal impedance and all leads in all 4-lead sites were programmed and responded normally. The generator was then programmed to ensure good proper stimulation of the InterStim device this was done in the operating room, after complex programming was completed we finished with fluoroscopy I then closed the insertion site with subcuticular stitches and Steri-Strips and bandages and then closed the pocket with subcuticular stitches and Steri-Strips and bandages. The patient's anesthetic was reversed patient was taken back to the recovery room in stable condition and further training and education will be given to the patient regarding how to use the new InterStim therapy. CPT codes: 62253 -Lead placement CPT codes: 95647 - Batterry Generator placement Surgical Findings: implant all lead 0- 3 ++ okay Complications Complications: No Admit VTE Documentation VTE Present on Admission: No VTE Mechan Device Prophylaxis: SCD's VTE Pharm Prophylaxis ordered?: No
[2024-08-19 14:58] VITALS: BP 113/69; BP 75/55; PULSE 73; RESP 16; TEMP 36.9; O2SAT 99
--- NOTE | 2024-08-19 15:04 | PCM.POST.ANE ---
Anesthesia: Postop Eval I Current Vital Signs Temperature: 98.4 F Pulse Rate: 78 Blood Pressure: 75/55 Respiratory Rate: 16 Pulse Ox: 98 Oxygen Delivery Method: Room Air Assessment Airway patent: Yes Spontaneous unlabored respirations: Yes Mental status: Awake and Calm nausea: No Vomiting: No Anesthesia Complication: No Fluid Hydration Crystalloid volume administer (ml): 500 Total IV fluid infused: 500 Progress Note Anesthesia document: Postop Eval 1 completed: Yes
[2024-08-19 15:05] VITALS: BP 113/69; BP 75/55; BP 96/66; PULSE 75; PULSE 78; RESP 16; TEMP 36.9; O2SAT 100; O2SAT 98
[2024-08-19 15:10] VITALS: BP 110/69; BP 113/69; PULSE 74; RESP 16; O2SAT 100
[2024-08-19 15:14] VITALS: BP 103/46; BP 113/69; PULSE 72; RESP 16; TEMP 36.4; O2SAT 99
[2024-08-19 15:44] VITALS: BP 113/69
--- NOTE | 2024-08-19 20:55 | POSTOPAN2_ITS ---
Anesthesia Postop Eval I Sum Postop Eval Completion status Anesthesia document: Postop Eval 1 completed: Yes Anesthesia Postop Eval I Summary Anesthesia Postop Eval I Summary: Anesthesia Postop Eval I: Assessment Summary Airway patent Yes 08/19/24 15:05 PRODUCTION CONTROL [email or web address] Spontaneous unlabored Yes 08/19/24 15:05 PRODUCTION CONTROL [email or web address].CSIR respirations Mental status Awake,Calm 08/19/24 15:05 PRODUCTION CONTROL [email or web address] nausea No 08/19/24 15:05 PRODUCTION CONTROL [email or web address].CSIR Vomiting No 08/19/24 15:05 PRODUCTION CONTROL [email or web address].CSIR Anesthesia Postop Eval I: Fluid Summary Crystalloid volume administer 500 08/19/24 15:05 PRODUCTION CONTROL [email or web address].CSIR (ml) Colloids volume administered ( ml) Blood Product volume administered (ml) Total IV fluid infused 500 08/19/24 15:05 PRODUCTION CONTROL [email or web address].CSIR Anesthesia Postop Eval I: Summary Notes Anesthesia Complication No 08/19/24 15:05 PRODUCTION CONTROL [email or web address].CSIR Anesthesia Complication Comment: Post-operative progress note Anesthesia: Postop Eval II Evaluation Mental status: Awake and Calm Pain Level: 1 nausea: No Vomiting: No Complications Anesthesia Complication: No
--- NOTE | 2024-08-19 20:55 | PCM.POSTANE2 ---
Anesthesia Postop Eval I Sum Postop Eval Completion status Anesthesia document: Postop Eval 1 completed: Yes Anesthesia Postop Eval I Summary Anesthesia Postop Eval I Summary: Anesthesia Postop Eval I: Assessment Summary Airway patent Yes 08/19/24 15:05 WREATH MACHINE [email or web address].[email or web address] Spontaneous unlabored Yes 08/19/24 15:05 WREATH MACHINE TENDER.CSIR respirations Mental status Awake,Calm 08/19/24 15:05 WREATH MACHINE [email or web address].CSIR nausea No 08/19/24 15:05 WREATH MACHINE TENDER.CSIR Vomiting No 08/19/24 15:05 WREATH MACHINE TENDER.CSIR Anesthesia Postop Eval I: Fluid Summary Crystalloid volume administer 500 08/19/24 15:05 WREATH MACHINE TENDER.CSIR (ml) Colloids volume administered ( ml) Blood Product volume administered (ml) Total IV fluid infused 500 08/19/24 15:05 WREATH MACHINE TENDER.CSIR Anesthesia Postop Eval I: Summary Notes Anesthesia Complication No 08/19/24 15:05 WREATH MACHINE TENDER.CSIR Anesthesia Complication Comment: Post-operative progress note Anesthesia: Postop Eval II Evaluation Mental status: Awake and Calm Pain Level: 1 nausea: No Vomiting: No Complications Anesthesia Complication: No
== END 2024-08-19 15:46 | disposition home or self-care (01) ==
LOC: SDC 12:30 → AC 12:33
PROVIDERS: PCP Family Medicine; Referring Provider Urology; Visit Provider Urology
PROC: (CPT 64581; principal; 2024-08-19 14:15)
DX: N32.81 Overactive bladder (principal); N39.41 Urge incontinence; R35.0 Frequency of micturition; E78.00 Pure hypercholesterolemia, unspecified; Z79.899 Other long term (current) drug therapy
CPT/HCPCS: 64581; 64590; 00630; 72170; 76000; C1767

== ENCOUNTER → 2024-10-15 | Outpatient (CLI) | payer MEDICARE, BC, SELFPAY | END | disposition home or self-care (01) | LOC: SL 19:31 | PROVIDERS: PCP Family Medicine; Referring Provider Family Medicine; Visit Provider Family Medicine | DX: G47.10 Hypersomnia, unspecified (principal) | CPT/HCPCS: 95810 ==

== ENCOUNTER → 2025-03-16 | Outpatient (CLI) | payer MEDICARE, BC, SELFPAY | END | disposition home or self-care (01) | LOC: SL 13:53 | PROVIDERS: Referring Provider Nurse Practitioner Family; Visit Provider Nurse Practitioner Family | DX: G47.33 Obstructive sleep apnea (adult) (pediatric) (principal) | CPT/HCPCS: 98960; G0463 ==

== ENCOUNTER → 2025-03-23 | Outpatient (CLI) | payer MEDICARE, BC, SELFPAY ==
[2025-03-23 12:09] LABS: Hematocrit 38.9 % (37-47); Hemoglobin 12.5 g/dL (12.0-15.0); Immature Granulocytes Count 0.030 X10^3/uL (0.0-0.0); Mean Corp Hgb Conc 32.1 g/dL (32-36); Mean Corpuscular Volume 98.5 fL (81-99); Mean Platelet Vol. 10.5 fl (6.2-12.0); NRBC Flagged by Analyzer 0 % (0-5); Platelet Count 251 K/mm3 (150-450); RBC Distribution Width CV 12.8 % (11.6-14.6); RBC Distribution Width SD 46.1 fl (35.1-43.9); Red Blood Count 3.95 M/mm3 (4.2-5.4); White Blood Count 6.0 K/mm3 (4.4-11.0)
[2025-03-23 12:41] LABS: AST(SGOT) 20 U/L (<=31); Alanine Aminotransfer ALT/SGPT 14 U/L (<=34); Albumin, Serum 4.3 g/dL (3.4-4.8); Alkaline Phosphatase 94 U/L (35-104); Anion Gap 12 (5-15); BUN 18 mg/dL (4-19); BUN/Creat Ratio 15.8 RATIO (10-20); Calcium,Total 9.5 mg/dL (7.6-11.0); Carbon Dioxide 24.8 mmol/L (21.0-32.0); Chloride 103 mmol/L (98-108); Cholesterol 184 mg/dL (<=200); Globulin 3.1 g/dL (2.2-4.2); Glucose 90 mg/dL (70-99); Low Density Lipoprotein Calc. 87 mg/dL; Potassium 4.4 mmol/L (3.3-5.1); Triglycerides 166 mg/dL; Very Low Density Lipoprotein 33 mg/dL (5-40); Vitamin D,25 Hydroxy 49.3 ng/mL (30-100); cholesterol:hdl ratio screen 2.89
== END | disposition home or self-care (01) ==
LOC: MFPLAB 10:12
PROVIDERS: Visit Provider Family Medicine
DX: N18.1 Chronic kidney disease, stage 1 (principal); E78.2 Mixed hyperlipidemia; M85.80 Other specified disorders of bone density and structure, unspecified site
CPT/HCPCS: 36415; 80053; 80061; 82306; 85025

== ENCOUNTER → 2025-03-31 | Outpatient (CLI) | payer MEDICARE, BC, SELFPAY ==
--- NOTE | 2025-03-31 09:19 | BI_ITS ---
EXAM: SCRN MAMM (CAD)W/MIRYAM BILAT DATE: 03/31/2025 CLINICAL HISTORY: F, Age 69 y/o , SCREENING TECHNIQUE: SCRN MAMM (CAD)W/MIRYAM BILAT COMPARISON: Prior exam(s) dated 03/25/2024, 03/14/2023, 03/08/2022. FINDINGS: TISSUE DENSITY: There are scattered areas of fibroglandular density. Bilateral Breast Mammographic Findings: No significant masses, calcifications or other abnormalities are identified. BI/SCRN MAMM (CAD)W/MIRYAM BILAT IMPRESSION: There is no mammographic evidence of malignancy. OVERALL FINAL ASSESSMENT BI-RADS 1: NEGATIVE. RECOMMENDATION: Routine annual follow-up in 1 Year A letter with findings and recommendations will be mailed to the patient. Reading Location: [id number]
== END | disposition home or self-care (01) ==
LOC: OPBI 09:18
PROVIDERS: PCP Family Medicine; Referring Provider Nurse Practitioner Family; Visit Provider Nurse Practitioner Family
DX: Z12.31 Encounter for screening mammogram for malignant neoplasm of breast (principal)
CPT/HCPCS: 77063; 77067